=== PATIENT | female | born 1995 | race American Indian/Alaskan Native ===

== ENCOUNTER 2021-03-07 19:01 | Emergency (ER) | payer SELFPAY ==
[2021-03-07 19:06] VITALS: BP 127/76
[2021-03-07] MEDS ORDERED: IBUPROFEN 800 MG TAB PO ONE (19:49)
--- NOTE | 2021-03-07 19:50 | Emergency Department Report ---
Minor Respiratory - HPI Chief Complaint: Fever Stated Complaint: FEVER Duration: Today Pain Location: Nose Severity: mild Minor Respiratory: Yes Rhinorrhea, Yes Able to Tolerate Fluids, Yes Cough, Yes Fever, No Sore Throat, No Ear Pain, No Sick Contacts, No Hemoptysis, No Chest Pain, No Shortness of Breath Other History: 26-year-old -[place] female presents to the emergency room stating she has been having a fever at 102 T-max yesterday. She has been taking Tylenol and TheraFlu. She admits to body aches nausea and nasal congestion with cough. She denies any shortness of breath. She states she is fully vaccinated for Covid. She has not been tested recently. ED Review of Systems ROS: Stated complaint: FEVER Other details as noted in HPI Comment: All other systems reviewed and negative Minor Respiratory Exam - Exam General: Vital signs noted. No distress. Alert and acting appropriately. HEENT: Yes Moist Mucous Membranes, No Pharyngeal Erythema, No Pharyngeal Exudates, No Rhinorrhea, No Conjuctival Injection, No Frontal Tenderness, No Maxillary Tenderness Neck: Yes Supple, No Adenopathy Lungs: Yes Good Air Exchange, No Wheezes, No Ronchi, No Stridor, No Cough, No Labored Respirations, No Retractions, No Use of Accessory Muscles, No Other Abnormal Lung Sounds Heart: Yes Regular Abdomen: Yes Normal Bowel Sounds, No Tenderness, No Peritoneal Signs Skin: No Rash, No Edema Neurologic: Alert and oriented, no deficits. Musculoskeletal: Unremarkable. ED Course Vital Signs 03/07/21 19:05 Temperature 100.8 F H Pulse Rate 115 H Respiratory 18 Rate Blood Pressure 127/76 [Left] O2 Sat by Pulse 99 Oximetry ED Medical Decision Making - Medical Decision Making 26-year-old -[place] female presents to the emergency room stating she has been having a fever at 102 T-max yesterday. She has been taking Tylenol and TheraFlu. She admits to body aches nausea and nasal congestion with cough. She denies any shortness of breath. She states she is fully vaccinated for Covid. She has not been tested recently. cxr and Ibuprofen. Critical care attestation.: If time is entered above; I have spent that time in minutes in the direct care of this critically ill patient, excluding procedure time. ED Disposition Clinical Impression: Fever Disposition: 07 LEFT AWOL/ELOPED Is pt being admited?: No Does the pt Need Aspirin: No Condition: Undetermined
== END 2021-03-07 20:30 | disposition left against medical advice (07) ==
LOC: ED 19:01
DX: R50.9 Fever, unspecified (principal)
CPT/HCPCS: 99282